=== PATIENT | male | born 1985 | race Two or more races ===

== ENCOUNTER 2018-11-15 11:43 | Emergency (ER) | payer OTHER ==
[~2018-11-15] VITALS: Ht 172.7 cm; Wt 88.2 kg
--- NOTE | 2018-11-15 12:18 | NUR ---
PT STATED THAT HE HAS ABD PAIN FOR TWO WEEKS AND VOMITED BLOOD TODAY. THEY CAN NOT SAY HOW MUCH BLOOD, BUT IT WASNT A 1/2 CUP. PT IS ALERT, ORIENTED, WITH NAD. PT IS CONNECTED TO THE MONITOR. CALL LIGHT WITHIN REACH.
--- NOTE | 2018-11-15 12:51 | NUR ---
REPORT GIVEN TO TITO MCKINLEY.
--- NOTE | 2018-11-15 12:56 | NUR ---
REPORT RECEIVED FROM ARLEN BELLA AT BEDSIDE. PT IS A&O, RESPS EVEN AND UNLABORED. NO VOMITING AT THIS TIME. PT ON ALL MONITORS, NSR ON [employer]. PT INFORMED OF NEED FOR URINE SAMPLE, URINAL AT BEDSIDE. CALL LIGHT IN REACH, S/O AT BEDSIDE.
[2018-11-15 13:00] LABS: BASOPHILS # (AUTO) 0.01 x10^3/uL (0-0.1); BASOPHILS % (AUTO) 0 % (0-1); EOSINOPHILS # (AUTO) 0.04 x10^3/uL (0-0.4); EOSINOPHILS % (AUTO) 0 % (1-7); LYMPHOCYTES # (AUTO) 1.11 x10^3/uL (1-3.4); LYMPHOCYTES % (AUTO) 11 % (22-44); MD NO; MEAN CORPUSCULAR HEMOGLOBIN 29.5 pg (27.5-34.5); MEAN CORPUSCULAR HGB CONC 34.1 g/dL (33.2-36.2); MEAN CORPUSCULAR VOLUME 86.6 fL (81-97); MEAN PLATELET VOLUME 8.6 fL (7.4-10.4); MONOCYTES # (AUTO) 0.56 x10^3/uL (0.2-0.8); MONOCYTES % (AUTO) 5 % (2-9); NEUTROPHILS # (AUTO) 8.66 x10^3/uL (1.8-6.8); NEUTROPHILS % (AUTO) 83 % (42-75); PLATELET COUNT 215 x10^3/uL (130-400); RED BLOOD COUNT 6.05 x10^6/uL (4.38-5.82)
--- NOTE | 2018-11-15 13:03 | NUR ---
URINE COLLECTED AND SENT TO LAB. PT STATES HE HAS PERIUMBILICAL ABD PAIN LEVEL 7/10, DECLINES NEED FOR PAIN MED AT THIS TIME. AWAITING LAB/UA RESULTS AND DISPO AT THIS TIME. PT DENIES ANY NEEDS.
[2018-11-15 13:12] LABS: ALBUMIN 3.8 g/dL (3.4-5.0); ANION GAP 6 mmol/L (5-15); CALCIUM 8.2 mg/dL (8.5-10.1); CHLORIDE 110 mmol/L (98-107)
[2018-11-15 13:15] LABS: MICROSCOPIC NOT IND
[2018-11-15 13:16] LABS: ALANINE AMINOTRANSFERASE 99 U/L (12-78); ALKALINE PHOSPHATASE 96 U/L (45-117); CREATININE 0.85 mg/dL (0.7-1.3); TOTAL PROTEIN 7.8 g/dL (6.4-8.2)
[2018-11-15 13:19] LABS: CULTURE INDICATED? NO
[2018-11-15 14:58] VITALS: BP 111/75
== END 2018-11-15 15:00 | disposition home or self-care (01) ==
LOC: ED 13:34
DX: R10.84 Generalized abdominal pain (principal); R11.2 Nausea with vomiting, unspecified
CPT/HCPCS: 36415; 80053; 81003; 83690; 85025; 93005; 99284

== ENCOUNTER 2019-11-21 09:09 | Emergency (ER) | payer OTHER ==
[~2019-11-21] VITALS: Ht 157.5 cm; Wt 82.4 kg
[2019-11-21 09:13] VITALS: BP 140/98
[2019-11-21] MEDS ORDERED: IBUPROFEN 200 MG TABLET ONE (10:23)
[2019-11-21] MEDS ORDERED: IBUPROFEN 800 MG TABLET PO ONE (10:30)
== END 2019-11-21 11:11 | disposition home or self-care (01) ==
LOC: ED 11:08
DX: H66.001 Acute suppurative otitis media without spontaneous rupture of ear drum, right ear (principal); J02.9 Acute pharyngitis, unspecified
CPT/HCPCS: 87081; 87880; 99283